=== PATIENT | female | born 2000 | race Caucasian/White ===

== ENCOUNTER 2023-01-25 05:21 | Inpatient (IN) | payer BC, OTHER ==
[2023-01-24 10:21] LABS: Hemoglobin 9.2 g/dL (12.0-15.5); Platelet Count 287 10x3/uL (150-450)
[2023-01-24 11:01] LABS: HBSAg Index 0.16 S/CO (0-0.99); Hep B Surf Ag Non-Reactive S/CO (NonReactive)
[2023-01-24 13:40] LABS: Syphilis Antibody Nonreactive (Nonreactive); Syphilis Antibody Index 0.05 S/CO (<1.00 Non-Reactive)
[2023-01-25 06:06] VITALS: BMI 34.4
[2023-01-25] MEDS ORDERED: CEFAZOLIN 2 GM VIAL ONE (06:57)
[2023-01-25] MEDS ORDERED: Ondansetron PF 4 MG/2 ML Vial ONE (07:22)
[2023-01-25] MEDS ORDERED: Morphine PF 10 MG/10 ML VIAL ONE (07:22)
[2023-01-25] MEDS ORDERED: Dexamethasone 4 mg/ml Vial ONE (07:22)
[2023-01-25] MEDS ORDERED: Phenylephrine 40 MG/NS 250 ML 250 ML ONE (07:23)
[2023-01-25] MEDS ORDERED: Oxytocin 10 UNITS/ML VIAL ONE (07:23)
[2023-01-25] MEDS ORDERED: PHENYLEPHRINE-NS 100 MCG/ML 10 ML SYRINGE ONE (07:23)
[2023-01-25] MEDS ORDERED: Fentanyl 100 MCG/2 ML VIAL SLOW IVP PRN (07:30)
[2023-01-25] MEDS ORDERED: Promethazine HCl 25 MG/ML VIAL IM PRN ×2 (07:30→11:56)
[2023-01-25] MEDS ORDERED: Naloxone HCl 0.4 mg/ml Vial IV PRN (07:30)
[2023-01-25] MEDS ORDERED: L&D-Morphine 4 MG/ML VIAL SLOW IVP PRN (07:30)
[2023-01-25] MEDS ORDERED: Moisturizing Cream (Eucerin) 113 GM JAR TOP PRN (07:30)
[2023-01-25] MEDS ORDERED: Ondansetron PF 4 MG/2 ML Vial IVP PRN ×2 (07:30→11:56)
[2023-01-25] MEDS ORDERED: Ketorolac Tromethamine 30 MG/ML VIAL IVP PRN (07:30)
[2023-01-25] MEDS ORDERED: Meperidine HCl/PF 25 MG/ML VIAL SLOW IVP PRN (07:30)
[2023-01-25] MEDS ORDERED: Ondansetron HCl/PF 4 MG/2 ML Vial IVP PRN (07:30)
[2023-01-25] MEDS ORDERED: Communication Order-Pharmacy FS SCH (07:30)
[2023-01-25] MEDS ORDERED: Ketorolac Tromethamine 30 MG/ML VIAL IVP SCH ×2 (07:30→14:30)
[2023-01-25] MEDS ORDERED: Naloxone HCl 0.4 mg/ml Vial IVP PRN ×2 (07:30)
[2023-01-25] MEDS ORDERED: Promethazine HCl 25 MG SUPP PR PRN (07:30)
[2023-01-25] MEDS ORDERED: diphenhydrAMINE 50 MG/ML VIAL IVP PRN (07:30)
[2023-01-25] MEDS ORDERED: Boostrix 0.5 ML (Tdap) VIAL (>/=7 yrs of age) IM ONE (11:56)
[2023-01-25] MEDS ORDERED: hydrALAZINE 20 MG/ML VIAL SLOW IVP PRN (11:56)
[2023-01-25] MEDS ORDERED: Lanolin Ointment 7 GM TUBE TOP PRN (11:56)
[2023-01-25] MEDS ORDERED: diphenhydrAMINE 25 MG CAP PO PRN (11:56)
[2023-01-25] MEDS ORDERED: Bisacodyl 10 MG SUPP PR PRN (11:56)
[2023-01-25] MEDS ORDERED: Ferrous Sulfate 325 MG TAB PO SCH (12:15)
[2023-01-25] MEDS ORDERED: Docusate 100 MG CAP PO SCH (12:15)
[2023-01-25] MEDS ORDERED: Prenatal Vitamin 1 TAB PO SCH (12:15)
[2023-01-25] MEDS: Ketorolac Tromethamine 30 MG/ML VIAL IVP SCH ×2 (17:41→23:10)
[2023-01-25] MEDS: Docusate 100 MG CAP PO SCH (23:08)
[2023-01-25] MEDS: Ferrous Sulfate 325 MG TAB PO SCH (23:08)
[2023-01-26 04:22] LABS: Hemoglobin 6.9 g/dL (12.0-15.5); Mean Corpuscular HGB CONC 31.1 g/dL (32.0-36.0); Mean Corpuscular Hemoglobin 24.2 pg (27.0-33.0); Mean Corpuscular Volume 77.9 fl (81.6-98.3); Mean Platelet Volume 10.1 fl (7.4-10.4); Platelet Count 236 10x3/uL (150-450); RBC Distribution Width 13.7 % (11.5-14.5); Red Blood Cell (RBC) Count 2.85 10x6/uL (3.90-5.03); White Blood Cell (WBC) Count 9.6 10x3/uL (3.5-10.5)
[2023-01-26] MEDS: HYDROcodone/Acetaminophen 5/325 mg Tablet PO PRN ×4 (05:35→20:43)
[2023-01-26] MEDS: Ketorolac Tromethamine 30 MG/ML VIAL IVP SCH ×2 (05:37→14:38)
[2023-01-26] MEDS: Ferrous Sulfate 325 MG TAB PO SCH ×2 (08:08→20:43)
[2023-01-26] MEDS: Simethicone Chewable 80 MG TAB PO PRN ×3 (08:08→20:43)
[2023-01-26] MEDS: Prenatal Vitamin 1 TAB PO SCH (08:08)
[2023-01-26] MEDS: Docusate 100 MG CAP PO SCH ×2 (08:08→20:43)
[2023-01-26] MEDS ORDERED: Ibuprofen 800 MG TAB PO SCH ×2 (14:00→22:00)
[2023-01-26] MEDS: Ibuprofen 800 MG TAB PO SCH ×2 (15:51→21:41)
[2023-01-27 05:11] LABS: Hemoglobin 9.5 g/dL (12.0-15.5)
[2023-01-27] MEDS: Ibuprofen 800 MG TAB PO SCH ×3 (05:57→21:05)
[2023-01-27] MEDS: HYDROcodone/Acetaminophen 5/325 mg Tablet PO PRN ×2 (07:55→12:48)
[2023-01-27] MEDS: Ferrous Sulfate 325 MG TAB PO SCH ×2 (07:55→21:05)
[2023-01-27] MEDS: Prenatal Vitamin 1 TAB PO SCH (07:56)
[2023-01-27] MEDS: Docusate 100 MG CAP PO SCH ×2 (07:56→21:05)
[2023-01-27] MEDS: Simethicone Chewable 80 MG TAB PO PRN (07:56)
[2023-01-28] MEDS: Ibuprofen 800 MG TAB PO SCH (05:25)
[2023-01-28 07:42] VITALS: BP 133/79; TEMP 98.3
[2023-01-28] MEDS: Docusate 100 MG CAP PO SCH (08:08)
[2023-01-28] MEDS: Ferrous Sulfate 325 MG TAB PO SCH (08:08)
[2023-01-28] MEDS: Prenatal Vitamin 1 TAB PO SCH (08:08)
[2023-01-28] MEDS: HYDROcodone/Acetaminophen 5/325 mg Tablet PO PRN ×2 (08:08→11:57)
== END 2023-01-28 13:30 | disposition home or self-care (01) | DRG 788 ==
LOC: CSHLD 05:21 → CSHPP 11:10
PROVIDERS: ADMIT Family Medicine; ATTEND Family Medicine
PROC: 10D00Z1 Extraction of Products of Conception, Low, Open Approach (ICD-10-PCS; principal; 2023-01-25)
PROC: 30233N1 Transfusion of Nonautologous Red Blood Cells into Peripheral Vein, Percutaneous Approach (ICD-10-PCS; 2023-01-25)
DX: O34.211 Maternal care for low transverse scar from previous cesarean delivery (principal); Z3A.39 39 weeks gestation of pregnancy; Z37.0 Single live birth; O24.420 Gestational diabetes mellitus in childbirth, diet controlled; E66.9 Obesity, unspecified; O99.214 Obesity complicating childbirth; Z79.899 Other long term (current) drug therapy; O40.3XX0 Polyhydramnios, third trimester, not applicable or unspecified; O36.63X0 Maternal care for excessive fetal growth, third trimester, not applicable or unspecified
CPT/HCPCS: 36415; 36416; 36430; 51702; 85014; 85018; 85027; 85049; 86780; 86850; 86900; 86901; 87340; J1100; J1885; J2274; J2405; J2550; J2590; P9016